=== PATIENT | female | born 1990 | race Caucasian/White ===

== ENCOUNTER 2020-02-10 05:47 | Emergency (ER) | payer OTHER ==
[~2020-02-10] VITALS: Ht 160 cm; Wt 77.6 kg
[2020-02-10] MEDS ORDERED: ONDANSETRON 2MG/ML, 2ML ONE (06:07)
--- NOTE | 2020-02-10 06:20 | NUR ---
MEDICATED PER MAR, PLACED ON VITALS SIGNS MONITORS. CALL LIGHT LEFT WITHIN REACH.
[2020-02-10] MEDS ORDERED: SODIUM CHLORIDE 0.9% 1,000ML IVBOLUS ONE (06:30)
[2020-02-10] MEDS ORDERED: ONDANSETRON 2MG/ML, 2ML IVPush ONE (06:30)
[2020-02-10] MEDS ORDERED: SODIUM CHLORIDE FLUSH 10ML SYR IVF ONE (06:30)
--- NOTE | 2020-02-10 06:32 | NUR ---
MEDICAL TRANSCRIPTION AT BEDSIDE.
[2020-02-10] MEDS ORDERED: ACETAMINOPHEN 500 MG TABLET ONE (06:36)
[2020-02-10 06:41] LABS: CULTURE INDICATED? YES; MICROSCOPIC INDICATED
[2020-02-10 06:42] LABS: BASOPHILS # (AUTO) 0.01 x10^3/uL (0-0.1); BASOPHILS % (AUTO) 0 % (0-1); EOSINOPHILS # (AUTO) 0.02 x10^3/uL (0-0.4); EOSINOPHILS % (AUTO) 0 % (1-7); LYMPHOCYTES # (AUTO) 0.83 x10^3/uL (1-3.4); LYMPHOCYTES % (AUTO) 7 % (22-44); MD NO; MEAN CORPUSCULAR HEMOGLOBIN 32.6 pg (27.0-34.8); MEAN CORPUSCULAR HGB CONC 33.8 g/dL (32.4-35.8); MEAN CORPUSCULAR VOLUME 96.4 fL (80-100); MEAN PLATELET VOLUME 7.9 fL (7.4-10.4); MONOCYTES # (AUTO) 0.08 x10^3/uL (0.2-0.8); MONOCYTES % (AUTO) 1 % (2-9); NEUTROPHILS # (AUTO) 10.43 x10^3/uL (1.8-6.8); NEUTROPHILS % (AUTO) 92 % (42-75); PLATELET COUNT 249 x10^3/uL (130-400); RED CELL DISTRIBUTION WIDTH 13.8 % (9.6-15.2)
[2020-02-10 06:53] LABS: ALANINE AMINOTRANSFERASE 25 U/L (12-78); ALBUMIN 3.2 g/dL (3.4-5.0); ANION GAP 7 mmol/L (5-15); CALCIUM 8.4 mg/dL (8.5-10.1); CHLORIDE 109 mmol/L (98-107); CREATININE 0.91 mg/dL (0.55-1.02)
[2020-02-10 06:55] LABS: ALKALINE PHOSPHATASE 79 U/L (45-117); BILIRUBIN,TOTAL 0.8 mg/dL (0.2-1.0); TOTAL PROTEIN 6.8 g/dL (6.4-8.2)
--- NOTE | 2020-02-10 06:55 | NUR ---
BEDSIDE REPORT GIVEN TO JUAN TATE.
[2020-02-10] MEDS ORDERED: ACETAMINOPHEN 500 MG TABLET PO ONE (07:00)
--- NOTE | 2020-02-10 07:01 | NUR ---
RECEIVED BEDSIDE REPORT FROM CARDIOTHORACIC SURGEON RN. PT RESTING COMFORTABLY.
[2020-02-10] MEDS ORDERED: PROMETHAZINE 25 MG/ML, 1ML ONE (07:06)
[2020-02-10] MEDS ORDERED: POTASSIUM CHLORIDE 20 MEQ TAB.ER.PRT ONE (07:07)
[2020-02-10] MEDS ORDERED: POTASSIUM CHLORIDE 20 MEQ TAB.ER.PRT PO ONE (07:30)
[2020-02-10] MEDS ORDERED: PROMETHAZINE 25 MG/ML, 1ML IM ONE (07:30)
[2020-02-10 07:40] VITALS: BP 111/76
--- NOTE | 2020-02-10 07:41 | NUR ---
GAVE DC AND RX INSTRUCTIONS TO PT. ANSWERED ALL QUESTION. PT AMBULATORY AND NOT IN ANY DISTRESS AT THIS TIME.
== END 2020-02-10 07:47 | disposition home or self-care (01) ==
LOC: ED 06:04
DX: E87.6 Hypokalemia (principal); R11.2 Nausea with vomiting, unspecified; R19.7 Diarrhea, unspecified; R10.84 Generalized abdominal pain; R50.9 Fever, unspecified
CPT/HCPCS: 36415; 71045; 80053; 81001; 81025; 83690; 85025; 87077; 87086; 96361; 96372; 96374; 99284; J2405; J2550; J7030; 87186